=== PATIENT | female | born 1965 | race Caucasian/White ===

== ENCOUNTER 2022-05-29 19:20 | Emergency (ER) | payer OTHER, SELFPAY ==
[2022-05-29 19:28] VITALS: BP 105/67; PULSE 67; RESP 16; TEMP 36.8; O2SAT 100
--- NOTE | 2022-05-29 19:33 | ED.WOUNDLAC ---
HPI - Wound/Laceration General Chief Complaint: Wound/Laceration Stated Complaint: needs rebandaged after surgery Time Seen by Provider: 05/29/22 19:33 Source: patient Mode of arrival: ambulatory Limitations: no limitations History of Present Illness HPI narrative: 51-year-old female presents requesting dressing change. Reports that she had a right bunionectomy this a.m. to great toe, dressings are saturated with blood and does not want to get into her bed with saturated dressings. Reports that this happened when she had bunionectomy to left foot, and was able to see her surgeon again to have dressings changed. She called him prior to arrival and told him that she was coming in to get her dressings changed And he agreed. All systems reviewed and negative except as noted above. Related Data Home Medications Medication Instructions Recorded Confirmed No Home Medications 05/29/22 05/29/22 Allergies Allergy/AdvReac Type Severity Reaction Status Date / Time Sulfa (Sulfonamide Allergy Mild Itching Unverified 05/29/22 19:33 Antibiotics) RAW NUTS AND FRUITS Allergy Unknown MOUTH Uncoded 07/04/10 10:58 BETTY Review of Systems Review of Systems: CONSTITUTIONAL: Denies fever, chills, or sweats. EYES: Denies visual changes, redness, or discharge. ENT: Denies rhinorrhea, congestion, sore throat, or otalgia. CARDIOVASCULAR: Denies chest pain, palpitations, or edema. RESPIRATORY: Denies cough or dyspnea. GASTROINTESTINAL: Denies abdominal pain, nausea, vomiting, or diarrhea. GENITOURINARY: Denies dysuria or hematuria. SKIN: Denies rash or itching. Requesting dressing change to right foot. MUSCULOSKELETAL: Denies back pain, joint pain, or myalgia. NEUROLOGIC: Denies headache, numbness, or weakness. PSYCHIATRIC: Denies anxiety or depression. All other systems reviewed are negative, except as documented in HPI. PMFSH Comments At time of signature, agree with nursing past medical, surgical, social and family history. There is no relevant family history pertinent to the presenting complaint. Exam Narrative: GENERAL: This is a well-nourished, well-developed patient, in no apparent distress. HEAD: normocephalic, atraumatic. EYES: PERRL. Sclera clear/white. Vision is grossly intact. EARS: External ears normal NOSE: External nose normal NECK: Neck supple, non-tender without lymphadenopathy, masses or thyromegaly. CARDIOVASCULAR: Regular rate and rhythm without murmurs, gallops, or rubs. RESPIRATORY: Clear to auscultation. Breath sounds equal bilaterally. No wheezes, rales, or rhonchi. SKIN: warm, Dry, intact with no suspicious lesions or rash, good texture and turgor. There is a incision to the medial aspect right foot, sutures in place. Scant bleeding noted. New dressing applied using non hearing, gauze 4x4s, [place]. NEURO: awake, alert, and oriented to person, place and time. There were no obvious focal neurologic abnormalities. EXTREMITIES: No joint tenderness, effusion, or edema noted. Course Course Level of Care: Express Care Visit Vital Signs Vital signs: Vital Signs Temperature 36.8 C 05/29/22 19:28 Pulse Rate 67 05/29/22 19:28 Respiratory Rate 16 05/29/22 19:28 Blood Pressure 105/67 05/29/22 19:28 Pulse Oximetry 100 05/29/22 19:28 Oxygen Delivery Room Air 05/29/22 19:28 Temperature 36.8 C 05/29/22 19:28 Pulse Rate 67 05/29/22 19:28 Respiratory Rate 16 05/29/22 19:28 Blood Pressure 105/67 05/29/22 19:28 Pulse Oximetry 100 05/29/22 19:28 Oxygen Delivery Room Air 05/29/22 19:28 Reviewed MDM - Wound/Laceration MDM Narrative Medical decision making narrative: Patient is aware of diagnosis, understands and agrees to treatment plan. Anticipatory guidance given. Patient agrees to follow-up as directed and is aware of reasons to seek care at the emergency department. Portions of this record may have been created with voice recognition software Dis
== END 2022-05-29 19:56 | disposition home or self-care (01) ==
PROVIDERS: Emergency Provider Nurse Practitioner Family; PCP Physician Assistant
DX: Z48.01 Encounter for change or removal of surgical wound dressing (principal)
CPT/HCPCS: 99202; G0463

== ENCOUNTER → 2023-03-31 11:27 | Outpatient (CLI) | payer OTHER, SELFPAY ==
--- NOTE | ~2023-03-31 | CT_ITS ---
EXAMINATION: CT sinus wo con DATE: 03/31/2023 11:40 INDICATION: Chronic pansinusitis TECHNIQUE: Computed tomography (CT) of the paranasal sinuses was performed without intravenous contra st. The dose-length product was 291.51 mGy-cm. Automated exposure control and iterative reconstructio n technique were employed. COMPARISON: CT dated 10/04/2013 FINDINGS: Rightward nasal septal deviation. Ostiomeatal units are patent bilaterally. No significant mucosal thickening. No abnormal air-fluid levels. No mucoperiosteal reaction. Mastoids are pneumatize d. No depressed skull fractures. No midline shift. IMPRESSION: 1. No significant sinus disease. Reviewed, dictated and finalized at location L.
== END ==
PROVIDERS: PCP Otolaryngology; Visit Provider Otolaryngology
DX: J32.4 Chronic pansinusitis (principal)
CPT/HCPCS: 70486

== ENCOUNTER 2023-10-12 00:48 | Day surgery (SDC) | payer OTHER, SELFPAY ==
[2023-10-01 10:39] VITALS: BMI 21.2
[2023-10-12 12:09] VITALS: BP 113/63; PULSE 86; RESP 16; TEMP 36.6; O2SAT 100
[2023-10-12] MEDS: LACTATED RINGERS 1,000 ML 150 ML IV CONT (12:17)
--- NOTE | 2023-10-12 12:52 | P.PNAN_ITS ---
Anes - Initial Pre Proc Eval Procedure: Operation Date: 10/12/23 13:00 Proposed Procedures p Screening Colonoscopy - Aung Vasquez MD Date/Time: 10/12/23 12:52 Surgeon: Aung Vasquez MD Pre Op Diagnosis: neoplasm screening Patient Data Age: 58 Gender: F Height: 1.6 m Weight: 56.1 kg Last Vital Signs Temp 97.8 F 10/12/23 12:09 Pulse 86 10/12/23 12:09 Resp 16 10/12/23 12:09 BP 113/63 10/12/23 12:09 Pulse Ox 100 10/12/23 12:09 O2 Del Method Room Air 10/12/23 12:09 Allergies Allergy/AdvReac Type Severity Reaction Status Date / Time Sulfa (Sulfonamide Allergy Mild Itching Verified 10/12/23 12:00 Antibiotics) RAW NUTS AND FRUITS Allergy Unknown MOUTH Uncoded 10/12/23 12:00 SWELLS Home Medications Medication Instructions Recorded Confirmed Type amitriptyline 25 mg tablet 25 mg PO DAILY 10/01/23 10/12/23 History Patient hx anesthesia problems: none Family hx anesthesia problems: none Results Review: All pre-operative results and documents have been reviewed as part of the pre- operative evaluation. [facility] Social History Social History Smoking status: Never smoker Alcohol intake: current Drinks per week: 1 Substance use: never Substance use type: does not use Living arrangements: with family Spiritual care concerns: No Anes - Eval Final PreProcedure Day of Procedure 10/12/23 12:52 Patient weight: normal Heart: regular rate and rhythm Lungs: clear to auscultation Airway: Mallampati scale class II Neurological: alert and oriented Last oral intake: >/= 8 hours ASA classification: II Emergent: no Anesthetic plan: proceed Anesthesia type and monitoring: general GIVS and standard monitoring Results Review: All pre-operative results and documents have been reviewed as part of the pre- operative evaluation. Informed Consent: The patient's anesthetic plan and its attendant risks and benefits were discussed with the patient/family/POA. Questions were solicited and answers provided to the satisfaction of the patient/family/POA.
--- NOTE | 2023-10-12 13:19 | PM.HPGS ---
History of Present Illness History of Present Illness Consent: Risks, benefits, and alternatives have been discussed and questions answered. Patient agrees to proceed with procedure. Chief complaint: neoplasm screening Narrative: Bee Franks is a 58 year old female here for screening colonoscopy, last one about 10 years ago Review of Systems Review of Systems: All systems reviewed & are unremarkable except as noted in HPI and below PMFSH Past Medical History Medical History (Updated 10/12/23 @ 13:19 by Aung Vasquez MD) Colon cancer screening Social History Social History Smoking status: Never smoker Alcohol intake: current Drinks per week: 1 Substance use: never Substance use type: does not use Living arrangements: with family Spiritual care concerns: No Meds Home Medications and Allergies Home Medications Medication Instructions Recorded Confirmed Type amitriptyline 25 mg tablet 25 mg PO DAILY 10/01/23 10/12/23 History Allergies Allergy/AdvReac Type Severity Reaction Status Date / Time Sulfa (Sulfonamide Allergy Mild Itching Verified 10/12/23 12:00 Antibiotics) RAW NUTS AND FRUITS Allergy Unknown MOUTH Uncoded 10/12/23 12:00 SWELLS Vital Signs Vital Signs - 24 hr 10/12/23 12:09 Temperature 97.8 F Pulse Rate 86 Respiratory Rate 16 Blood Pressure 113/63 Pulse Oximetry 100 Oxygen Delivery Room Air Exam Const: General: comfortable and no acute distress HENMT: Face/Nose/Sinus: Normal nares present Eyes: General: appearance normal, both eyes and all related structures Neck: Neck: no JVD Resp: Auscultation: clear to auscultation bilaterally Cardio: Rate: regular rate Rhythm: regular rhythm GI: Inspection: non-distended GI Palp: Yes Soft to palpation Skin: General skin exam: normal color Neuro: General: gait normal Speech: normal speech Extrem: General: normal to inspection Psych: Mental Status: mental status grossly normal Assessment and Plan Assessment and plan (1) Colon cancer screening: Code(s): Z12.11 - Encounter for screening for malignant neoplasm of colon Status: Acute Assessment and Plan: colonoscopy
[2023-10-12 13:36] VITALS: BP 86/52; PULSE 78; RESP 16; O2SAT 100
[2023-10-12 13:46] VITALS: BP 88/51; PULSE 77; RESP 16; O2SAT 100
[2023-10-12 13:52] VITALS: BP 101/63; PULSE 80; RESP 16; O2SAT 100
== END 2023-10-12 14:21 | disposition home or self-care (01) ==
PROVIDERS: PCP Physician Assistant; Referring Provider Physician Assistant; Visit Provider Internal Medicine Gastroenterology
PROC: 0DJD8ZZ Inspection of Lower Intestinal Tract, Via Natural or Artificial Opening Endoscopic (ICD-10-PCS; CPT 45378; principal; 2023-10-12 13:00)
DX: Z12.11 Encounter for screening for malignant neoplasm of colon (principal); K64.8 Other hemorrhoids
CPT/HCPCS: 45378; J2704; J7120